=== PATIENT | female | born 1945 | race Caucasian/White ===

== ENCOUNTER 2016-12-16 10:09 | Emergency (ER) | payer MEDICARE, OTHER ==
[2016-12-16] MEDS ORDERED: ONDANSETRON HCL 4 MG/2 ML VIAL ONE (12:09)
[2016-12-16 12:13] LABS: A/G RATIO 1.3; ALBUMIN 3.9 g/dL (3.5-5.0); ALKALINE PHOSPHATASE 99 U/L (38-126); ALT 35 U/L (9-52); AST 53 U/L (14-36); BILIRUBIN, TOTAL 0.9 mg/dL (0.2-1.3); BLOOD UREA NITROGEN 12 mg/dL (7-17); C-REACTIVE PROTEIN 48.6 mg/L (<10.0); CALCIUM 9.4 mg/dL (8.4-10.2); CHLORIDE 103 mmol/L (98-107); EST GLOMERULAR FILTRATION RATE > 60 mL/min; POTASSIUM 3.6 mmol/L (3.5-5.1); SODIUM 137 mmol/L (137-145); TOTAL PROTEIN 6.9 g/dL (6.3-8.2)
[2016-12-16 12:14] LABS: GLUCOSE 202 mg/dL (70-100)
[2016-12-16 12:41] LABS: HEMATOCRIT 36.5 % (36.0-48.0); HEMOGLOBIN 12.6 g/dL (12.0-16.0); MEAN CELL VOLUME 84.1 fL (80.0-100.0); MEAN CORPUS. HGB CONCENTRATION 34.4 g/dL (32.0-36.0); MEAN CORPUSCULAR HEMOGLOBIN 28.9 pg (29.0-35.0); MEAN PLATELET VOLUME 8.7 fL (7.4-10.4); PLATELET COUNT 284 X 10^3uL (130-440); RED BLOOD COUNT 4.34 X 10^6uL (4.20-6.10); RED CELL DISTRIBUTION WIDTH 15.6 % (11.5-14.5); WHITE BLOOD COUNT 11.7 X 10^3uL (3.9-10.7)
[2016-12-16 12:57] LABS: TROPONIN I < 0.012 ng/mL (0.00-0.034)
[2016-12-16 13:01] LABS: BAND% (Manual) 4 % (0.0-1.0); EOSINOPHIL % (Manual) 2 % (0.0-6.0); LYMPHOCYTE % (Manual) 8 % (20.0-40.0); MONOCYTE % (Manual) 8 % (2.0-10.0); NEUTROPHIL % (Manual) 78 % (54.0-75.0)
[2016-12-16 13:02] LABS: PLATELET ESTIMATE ADEQUATE
[2016-12-16 13:24] LABS: ERYTHROCYTE SEDIMENTATION RATE 32 MM/HR (0-20)
--- NOTE | 2016-12-16 14:33 | ER PHYSICIAN DOCUMENTATION ---
Physician Documentation [facility] Name:Germania Mckay Age:71 yrs Sex:Female :1945 Arrival Date:12/16/2016 Time:10:09 BedD-1 Private MD: Rafale iKrk Disposition: 12/17 21:33 Chart complete. tl1 Disposition: 12/16/16 13:39 Discharged to Home/Self Care. Impression: Joint Pain. - Condition is Good. - Discharge Instructions: ARTHRALGIA. - Prescriptions for Tramadol 50 mg Oral - take 2 tablet by ORAL route every 8 hours as needed; 20 tablet. - Medical Reconciliation form form. - Follow up: Private Physician; When: 2 - 3 days; Reason: Recheck today's complaints, Continuance of care. - Problem is new. - Symptoms have improved. - Notes: The cause of the pain and swelling in your foot is not clear. It could be related to your rheumatoid arthritis.. Infection seems unlikely, but you need to return if this gets worse. Make sure to follow up with your Neuropsychologist or family doctor as soon as possible after returning home. OK to take two ultram tablets every 6 hours as needed for your pain HPI: 12/16 10:13 This 71 yrs old Female presents to ER with complaints of Foot Pain -right. tl1 10:13 The patient presents with pain. The complaints affect the right foot, dorsum of right tl1 foot. Context: resulted from an unknown cause, Mechanism of Injury: Unknown the patient can partially bear weight, the patient is able to ambulate, can ambulate using a cane. Onset: The symptom(s)/episode began/occurred gradually, 2 day(s) ago. Modifying factors: The symptoms are alleviated by elevation of extremity, ice packs, the symptoms are aggravated by weight bearing. Severity of symptoms: At their worst the symptoms were mild, in the emergency department the symptoms are unchanged. The patient has not experienced similar symptoms in the past. Historical: - Allergies: PCN; Cymbalta; Talwin; - Home Meds: 1. Metformin Oral 2. Nitrofurantoin Macrocrystal Oral 3. amlodipine oral 4. benazepril oral 5. Trazodone Oral 6. Oxybutynin Chloride Oral 7. tramadol oral 8. Lyrica Oral 9. Omeprazole Oral 10. Sucralfate Oral 11. Carafate Oral 12. tizanidine oral 13. levothyroxine oral 14. Voltaren Oral 15. meloxicam oral - PMHx: DIABETES - NIDDM; HTN; bladders infections; FIBROMYALGIA; CHRONIC PAIN; GERD; IBS; HYPOTHYROIDISM; dry eyes; - PSHx: Appendectomy; Cholecysectomy; Hysterectomy; Tonsillectomy; fibroadenomas; CARPAL TUNNEL REPAIR; fusion of C 5/6, and C 6/7; removal of hardware from neck; bilat knee replacements; - Tetanus: unknown. - Ebola Screening: : Patient negative for fever greater than or equal to 101.5 degrees Fahrenheit, and additional compatible Ebola Virus Disease symptoms. Patient denies exposure to infectious person. Patient denies travel to an Ebola-affected area in the 21 days before illness onset. No symptoms or risks identified at this time. . - Immunization history: Unable to Obtain. - Social history: Smoking status: Patient states was never smoker of tobacco. ROS: 10:30 MS/extremity: Positive for pain, swelling, tenderness, of the dorsum of right foot. tl1 10:30 All other systems are negative. Exam: 10:30 Constitutional: The patient appears in no acute distress, alert, awake, non-toxic, well tl1 developed, well hydrated, well groomed, well nourished, obese, uncomfortable. 10:30 Head/face: Exam is negative for acute changes. 10:30 Eyes: Periorbital structures: appear normal, Conjunctiva: normal. 10:30 Neck: External neck: is normal, ROM/movement: is normal, Lymph nodes: no appreciated lymphadenopathy. 10:30 Chest/axilla: Inspection: normal. 10:30 Cardiovascular: Rate: normal, Rhythm: regular, Heart sounds: normal. 10:30 Respiratory: Respirations: normal, Breath sounds: are normal. 10:30 Abdomen/GI: Inspection: distension, is not seen, Palpation: abdomen is soft and non-tender. 10:30 Musculoskeletal/extremity: Extremities: grossly normal except: noted in the dorsum of right foot: erythema, swelling, tenderness, There is no evidence of abrasion, bite, contusion, deformity, ecchymosis, laceration, puncture, rash, swelling, tenderness. 10:30 Skin: Exam negative for acute changes. Vital Signs: 11:05 Pulse Ox 86% on R/A; lp 11:05 Pulse Ox 92% on 2 lpm NC; lp 12:54 BP 132 / 77; Pulse 93; Resp 18; Pulse Ox 92% on 2 lpm NC; Pain 6/10; rs MDM: 10:13 Patient medically screened. tl1 13:30 Differential diagnosis: fracture, sprain, arthritis, gout, cellulitis. Data reviewed: tl1 vital signs, nurses notes, lab test result(s), radiologic studies, and as a result, I will discharge patient. Test interpretation: by ED physician or midlevel provider: plain radiologic studies, ECG. Counseling: I had a detailed discussion with the patient and/or guardian regarding: the historical points, exam findings, and any diagnostic results supporting the discharge/admit diagnosis, lab results, radiology results, the need for outpatient follow up, to return to the emergency department if symptoms worsen or persist or if there are any questions or concerns that arise at home. Response to treatment: the patient's symptoms have mildly improved after treatment, and as a result, I will discharge patient. ED course: Later in her stay she mentioned left posterolateral pleuritic chest pain that lasted about 5 min an was unassociated with dyspnea, n/v/diaphoresis or palpitations. She had an unremarkable CXR and EKG, with a normal troponin and had no further chest discomfort throughout her ED stay. She was placed in a cast boot and given crutches. 12/16 12:14 Order name: COMPREHENSIVE METABOLIC PANEL; Complete Time: 21:24 EDMO 12/16 13:01 Interpretation: Normal Except: CARBON DIOXIDE 20; GLUCOSE 202; AST 53. [facility] 12/16 12:14 Order name: C-REACTIVE PROTEIN; Complete Time: 21:24 EDMS 12/16 12:59 Interpretation: Abnormal: C-REACTIVE PROTEIN 48.6. [facility] 12/16 12:57 Order name: TROPONIN I; Complete Time: 21:24 EDMS 12/17 21:23 Interpretation: Normal: TROPONIN I < 0.012. [facility] 12/16 12:58 Order name: CBC WITHOUT A DIFFERENTIAL; Complete Time: 21:24 EDMS 12/17 21:23 Interpretation: Normal Except: WHITE BLOOD COUNT 11.7. [facility] 12/16 13:03 Order name: MANUAL DIFFERENTIAL; Complete Time: 21:24 EDMS 12/17 21:23 Interpretation: NEUTROPHIL % (Manual) 78; BAND% (Manual) 4; LYMPHOCYTE % (Manual) 8. [facility] 12/16 13:24 Order name: ERYTHROCYTE SEDIMENTATION RATE; Complete Time: 21:24 EDMO 12/17 21:23 Interpretation: Abnormal: ERYTHROCYTE SEDIMENTATION RATE 32. 1 12/17 12:11 Order name: CHEST; SINGLE VIEW 09964; Complete Time: 21:24 EDMO 12/17 12:12 Order name: FOOT;[address] [place] [address]; Complete Time: 21:24 EDMO 12/17 21:24 Interpretation: NAD. See report. Hardware intact. [facility] 12/16 11:27 Order name: Iv Saline Lock; Complete Time: 12:26 12/16 12:20 Order name: 12-lead EKG; Complete Time: 12:21 12/16 13:00 Interpretation: SEE NOTE. Biphasic T waves in V4,5, Possible LAD. No old EKGs to 1 compare. 12/16 13:06 Order name: ORTHO: Crutches & Training 12/16 13:06 Order name: Walking Boot Dispensed Medications: 12:15 Drug: Zofran 4 mg; Route: IVP; Rate: 2 mg/min; Infused Over: 2 mins; Site: right rs antecubital; 12:17 Drug: Dilaudid 0.5 mg; Route: IVP; Rate: 0.25 mg/min; Infused Over: 2 mins; Site: right rs antecubital; Signatures: Reyna Kim RN RN rs Leigh, Tom, MD MD [facility]
--- NOTE | 2016-12-16 14:33 | ER NURSING DOCUMENTATION ---
Nurse's Notes [facility] Name:Germania Mckay Age:71 yrs Sex:Female :1945 Arrival Date:12/16/2016 Time:10:09 BedD-1 Private MD: Diagnosis:Joint Pain Presentation: 12/16 10:28 Presenting complaint: Patient states: States she started having right foot and ankle rs pain yesterday, and it is worse today. No hx of injury or gout. Has a hx of osteoarthritis. Transition of care: patient was not received from another setting of care. 10:28 Acuity: DARIUSZ 3 rs 10:28 Method Of Arrival: Private Vehicle rs Triage Assessment: 10:45 General: Appears in no apparent distress, comfortable, well developed, well nourished, rs well groomed, Behavior is cooperative, pleasant. Pain: Complains of pain in right foot and ankle Pain does not radiate. Pain currently is 8 out of 10 on a pain scale. Pain began 1 day ago. EENT: No deficits noted. Neuro: No deficits noted. Level of Consciousness is awake, alert, Oriented to person, place, time, event. Cardiovascular: No deficits noted. Capillary refill < 3 seconds Pulses are 3+ in left radial artery. Respiratory: No deficits noted. Respiratory effort is even, unlabored, Respiratory pattern is regular, symmetrical. Derm: No deficits noted. Skin is pink, warm & dry. Musculoskeletal: Circulation, motion, and sensation intact Capillary refill Range of motion limited in right ankle Tenderness present in tender right foot and ankle. Injury Description: none. Historical: - Allergies: PCN; Cymbalta; Talwin; - Home Meds: 1. Metformin Oral 2. Nitrofurantoin Macrocrystal Oral 3. amlodipine oral 4. benazepril oral 5. Trazodone Oral 6. Oxybutynin Chloride Oral 7. tramadol oral 8. Lyrica Oral 9. Omeprazole Oral 10. Sucralfate Oral 11. Carafate Oral 12. tizanidine oral 13. levothyroxine oral 14. Voltaren Oral 15. meloxicam oral - PMHx: DIABETES - NIDDM; HTN; bladders infections; FIBROMYALGIA; CHRONIC PAIN; GERD; IBS; HYPOTHYROIDISM; dry eyes; - PSHx: Appendectomy; Cholecysectomy; Hysterectomy; Tonsillectomy; fibroadenomas; CARPAL TUNNEL REPAIR; fusion of C 5/6, and C 6/7; removal of hardware from neck; bilat knee replacements; - Tetanus: unknown. - Ebola Screening: : Patient negative for fever greater than or equal to 101.5 degrees Fahrenheit, and additional compatible Ebola Virus Disease symptoms. Patient denies exposure to infectious person. Patient denies travel to an Ebola-affected area in the 21 days before illness onset. No symptoms or risks identified at this time. . - Immunization history: Unable to Obtain. - Social history: Smoking status: Patient states was never smoker of tobacco. Screenin:28 Infectious Disease Risk None. Abuse screen: Denies threats or abuse. Nutritional rs screening: No deficits noted. Assessment: 12:00 Reassessment: C/O left sided CP, the area is tender to palp, states it is similar to rs her fibromyalgia pain. MD notified.. Vital Signs: 11:05 Pulse Ox 86% on R/A; lp 11:05 Pulse Ox 92% on 2 lpm NC; lp 12:54 BP 132 / 77; Pulse 93; Resp 18; Pulse Ox 92% on 2 lpm NC; Pain 6/10; rs ED Course: 10:11 Patient arrived in ED. dp 10:13 Rafael Florez MD is Attending Physician. tl1 10:27 Reyna Kim, KIMI is Primary Nurse. rs 10:31 Triage completed. rs 10:40 Patient moved to radiology. nhan 10:45 Patient moved back from radiology. nhan 11:00 Arm band placed on Bed in low position Call Light in Reach Gowned HOB Elevated Side rs rails up x2. Family accompanied patient. 11:15 Door closed. Noise minimized. Verbal reassurance given. rs 11:30 Missed attempts: 20 gauge in left wrist, in left forearm. rs 12:10 Inserted saline lock: 22 gauge in right antecubital area and blood collected. rs 12:20 EKG done per protocol. Performed by ED Staff. Shown to ED physician. Labs ordered per rs protocol. X-ray ordered. 12:28 Pulse Ox - RN Monitoring Only NIBP On - RN Monitoring Only. rs 14:28 Crutch training done. Walking boot applied. rs 14:31 Valuables Remains with patient. rs Administered Medications: 12:15 Drug: Zofran 4 mg; Route: IVP; Rate: 2 mg/min; Infused Over: 2 mins; Site: right rs antecubital; 12:17 Drug: Dilaudid 0.5 mg; Route: IVP; Rate: 0.25 mg/min; Infused Over: 2 mins; Site: right rs antecubital; Outcome: 13:39 Discharge ordered by . tl1 14:29 Discharged to home via wheelchair. 14:29 Condition: improved 14:29 Discharge instructions given to patient, family, Instructed on crutch walking, discharge instructions, follow up and referral plans. medication usage, Demonstrated understanding of instructions, crutch walking, medications, Prescriptions given X 1. 14:32 Patient left the ED. 12/17 13:10 Discharge F/U Call: Unable to reach: left voicemail: lc Signatures: Reyna Kim RN RN rs Jacquelin Soto RN RN Frances St RN RN lp Abbott, Laura lea McBride, Philisha 1 Rafael Florez MD MD tl1 Lia Nevarez
--- NOTE | 2016-12-17 09:33 | RADIOLOGY REPORT ---
A limited single portable view of the chest demonstrates the heart, vessels and lungs to be unremarkable. IMPRESSION: Unremarkable limited single portable view of the chest. MTDD
--- NOTE | 2016-12-17 09:35 | RADIOLOGY REPORT ---
Three views of the right foot demonstrate no fracture or dislocation. Post surgical changes of the first metatarsal phalangeal joint are noted. Hardware appears intact and in appropriate position. Plantar calcaneal spur is seen. The joints appear unremarkable. IMPRESSION: Chronic changes as described. No displaced injury is identified. If clinically indicated, further evaluation and/or follow-up may be of benefit. DAVID
[2016-12-17] MEDS ORDERED: NALOXONE HCL 2 MG/2 ML SYR ONE (13:58)
== END 2016-12-16 14:32 | disposition home or self-care (01) ==
LOC: ER 10:09
DX: M25.571 Pain in right ankle and joints of right foot (principal); M79.671 Pain in right foot; R07.81 Pleurodynia; M06.9 Rheumatoid arthritis, unspecified; I10 Essential (primary) hypertension; E11.9 Type 2 diabetes mellitus without complications; Z79.899 Other long term (current) drug therapy
CPT/HCPCS: 71010; 73630; 80053; 84484; 85007; 85027; 85651; 86140; 93005; 96374; 96375; 99284; 99285; J1170; J2310; J2405

== ENCOUNTER 2016-12-17 13:31 | Emergency (ER) | payer MEDICARE, OTHER ==
[2016-12-17 14:32] LABS: ARTERIAL BLOOD GAS HCO3 25.6 mmol/L (22-26)
[2016-12-17 14:41] LABS: URINE MUCUS NONE SEEN (Up to 25%); URINE RBC NONE SEEN (0-5/hpf)
[2016-12-17 14:51] LABS: BASOPHILS 0.2 % (0.0-2.0); HEMOGLOBIN 11.6 g/dL (12.0-16.0); LYMPHOCYTES 11.3 % (20.0-40.0); LYMPHOCYTES# 1.4 X 10^3uL (0.8-3.8); MEAN CELL VOLUME 84.4 fL (80.0-100.0); MEAN CORPUS. HGB CONCENTRATION 34.1 g/dL (32.0-36.0); MEAN CORPUSCULAR HEMOGLOBIN 28.8 pg (29.0-35.0); MONOCYTES# 0.6 X 10^3uL (0.2-1.0); NEUTROPHILS 83.5 % (54.0-75.0); NEUTROPHILS# 10.6 X 10^3uL (2.6-6.7); PLATELET COUNT 259 X 10^3uL (130-440); RED BLOOD COUNT 4.02 X 10^6uL (4.20-6.10); RED CELL DISTRIBUTION WIDTH 16.1 % (11.5-14.5); WHITE BLOOD COUNT 12.6 X 10^3uL (3.9-10.7)
[2016-12-17 15:01] LABS: A/G RATIO 1.3; ALBUMIN 3.9 g/dL (3.5-5.0); ALKALINE PHOSPHATASE 90 U/L (38-126); ALT 879 U/L (9-52); BILIRUBIN, TOTAL 0.7 mg/dL (0.2-1.3); BLOOD UREA NITROGEN 27 mg/dL (7-17); CALCIUM 9.1 mg/dL (8.4-10.2); CHLORIDE 97 mmol/L (98-107); EST GLOMERULAR FILTRATION RATE 25 mL/min; POTASSIUM 4.1 mmol/L (3.5-5.1); SODIUM 137 mmol/L (137-145)
[2016-12-17 15:04] LABS: URINE APPEARANCE CLEAR; URINE COLOR YELLOW; URINE LEUKOCYTE ESTERASE NEGATIVE (NEGATIVE); URINE NITRITE NEGATIVE (NEGATIVE); URINE SPECIFIC GRAVITY 1.025 (0.001-1.035)
[2016-12-17 15:05] LABS: URINE BACTERIA NONE SEEN (<10/hpf); URINE BILIRUBIN NEGATIVE (NEGATIVE); URINE BLOOD NEGATIVE (NEGATIVE); URINE GLUCOSE NORMAL (NEGATIVE); URINE KETONE 5mg/dL (NEGATIVE); URINE PROTEIN 100mg/dL (2+) (NEG - TRACE); URINE UROBILINOGEN NORMAL (NEG-1mg/dL)
[2016-12-17 15:06] LABS: URINE AMORPHOUS SEDIMENT UP TO 25%/lpf (Up to 25%)
[2016-12-17 15:07] LABS: URINE SQUAMOUS EPITHELIAL CELL 0-5/hpf (<= 15/hpf); URINE WBC 0-4/hpf (0-4/hpf)
[2016-12-17 15:09] LABS: AST 1344 U/L (14-36); GLUCOSE 231 mg/dL (70-100)
[2016-12-17 15:10] LABS: ETHYL ALCOHOL < 10 mg/dL (<10)
--- NOTE | 2016-12-17 15:10 | CT REPORT ---
HISTORY: Altered mental status. COMPARISON: None TECHNIQUE: Axial CT images were obtained through the head and reformatted in coronal planes without the intraven ous administration of contrast. Dose reduction technique was utilized. FINDINGS: There is no acute infarct, hemorrhage, mass, hydrocephalus or midline shift. There are mild hypodens ities throughout the cerebral white matter. There is bilateral cataract surgery. There is no acute calvarial fracture. The visualized portions of the paranasal sinuses and the bilateral mastoid air cells are clear. IMPRESSION: 1. Mild chronic small vessel ischemic disease. 2. No acute intracranial process. Final Electronic Signature: This report was electronically signed by Ramesh Zhang MD on 12/18/19 17 3:08 PM. maribell /
[2016-12-17 15:31] LABS: ACETAMINOPHEN < 10.0 ug/mL (10.0-30.0)
[2016-12-17 15:52] LABS: TROPONIN I 0.256 ng/mL (0.00-0.034)
--- NOTE | 2016-12-17 16:07 | RADIOLOGY REPORT ---
A limited single portable view of the chest is compared with film of the previous date. Examination demonstrates a limited degree of inspiration. There has been development of stringy atelectasis and/or infiltrate at the right lung base. Heart and vessels are stable considering the inspiration. IMPRESSION: Interval development of stringy atelectasis and/or infiltrate at the right lung base. MTDD
--- NOTE | 2016-12-17 16:16 | CT REPORT ---
HISTORY: Altered mental status, elevated creatinine COMPARISON: None. TECHNIQUE: This examination was performed using automated exposure control, adjustment of mA or kV according to patient size, and/or use of iterative reconstruction technique. Axial contiguous images of the abdome n and pelvis were obtained without oral or IV contrast, coronal reformat images also performed. FINDINGS: Mild to moderate right basilar, and mild left basilar atelectasis is noted. No pleural effusions. The visualized portions of the inferior heart are unremarkable. The right and left kidneys are unremarkable. There is no hydronephrosis or hydroureter. There is no c alculus. The bladder is decompressed, with a Sanches catheter. There is no hepatic mass or intrahepatic biliary dilatation identified on limited noncontrast imaging . The gallbladder is absent. The spleen is unremarkable. There is no pancreatic mass or ductal dil atation. The adrenal glands are unremarkable. The bowel is unremarkable given the lack of contrast. No obstruction or evidence of inflammation. Th ere is no free intraperitoneal fluid or gas. There is no mesenteric edema or inflammatory process. Vascular structures of the abdomen and pelvis are unremarkable. No pathologic adenopathy is identifi ed. The uterus appears absent. The adnexal regions are normal. There is minimal posterior subluxatio n of L2 on 3,, with moderate to severe degenerative change at this level. A hemangioma at T6 is noted . IMPRESSION: Unremarkable noncontrast exam. No bowel obstruction. No kidney stone. No free air or free fluid. Moderate right and mild left basilar atelectasis without effusions. Final Electronic Signature: This report was electronically signed by Vik Solares MD on 12/17/2016 4: 13 PM. lexy /
[2016-12-17] MEDS ORDERED: IPRATROPIUM/ALBUTEROL 0.5/3 MG 3 ML AMPUL.NEB INHALATION ONE ×2 (16:38→18:39)
[2016-12-17] MEDS ORDERED: CEFTRIAXONE SODIUM ONE (16:52)
[2016-12-17] MEDS ORDERED: NORMAL SALINE 100 ML IV ONE (16:52)
[2016-12-17] MEDS ORDERED: ONDANSETRON HCL 4 MG/2 ML VIAL ONE (19:13)
--- NOTE | 2016-12-17 19:44 | ER NURSING DOCUMENTATION ---
Nurse's Notes [facility] Name:Germania Mckay Age:71 yrs Sex:Female :1945 Arrival Date:12/17/2016 Time:13:31 BedD-2 Private MD: Diagnosis:Altered Mental Status Presentation: 12/17 13:47 Presenting complaint: EMS states: Family states she was last seen normal before bed rs yesterday evening at 10 pm. She has been very sedate, had only a couple sips of water and did not get out of bed to go to the bathroom (or anything else). They "let her sleep", and then tried to arouse her, without success. Then called 911. She was in this ER yesterday for foot and ankle pain. Was tx with a boot / crutches and had her own Tramadol to take. Transition of care: patient was not received from another setting of care. 13:47 Acuity: DARIUSZ 2 rs 13:47 Method Of Arrival: EMS: 410 rs Triage Assessment: 14:14 General: Appears ill, Behavior is Minimally responsive, withdraws to pain. Eyes are rs open and gaze is caudal. Withdraws to painful stim of pressure on finger nail. . 14:32 Neuro: Level of Consciousness is lethargic, listless, does not obey commands. After rs being given a 1/2 amp of narcan she opened her eyes wide and said "yes" to every question. Her answer did not vary. Her speech was clear. . Neuro: Reports unable to answer. . Seizure activity No seizure activity. Cardiovascular: Capillary refill < 3 seconds Pulses are 2+ in left radial artery Reports nothing. Parent/caregiver reports patient has had vomited once before bed last noc. Did go out to dinner with family for their 50th anniversary celebration. She kept dozing off during the meal. Then she woke up after they got home for about one hour. Respiratory: Airway is patent Trachea midline Respiratory effort is even, unlabored, Respiratory pattern is regular, symmetrical, Breath sounds are clear bilaterally. Initial pulse ox on RA was 73%. GI: No deficits noted. Abdomen is non- distended obese, Bowel sounds present X 4 quads. Historical: - Allergies: PCN; Cymbalta; Talwin; - Home Meds: 1. Metformin Oral 2. Nitrofurantoin Macrocrystal Oral 3. amlodipine oral 4. benazepril oral 5. Trazodone Oral 6. Oxybutynin Chloride Oral 7. tramadol oral 8. tizanidine oral 9. Lyrica Oral 10. Omeprazole Oral 11. Nitrofurantoin Macrocrystal Oral 12. levothyroxine oral 13. amlodipine oral 14. meloxicam oral 15. Methotrexate (Anti-Rheumatic) 2.5 mg oral tab 16. Trazodone Oral 17. Voltaren Oral 18. Carafate Oral 19. Sucralfate Oral 20. pregabalin 200 mg oral cap 1 cap 3 times per day - PMHx: DIABETES - NIDDM; FIBROMYALGIA; CHRONIC PAIN; GERD; HYPOTHYROIDISM; dry eyes; Joint Pain (December 16, 2016); - PSHx: APPENDECTOMY; CHOLECYSECTOMY; HYSTERECTOMY; TONSILLECTOMY; fibroadenomas; CARPAL TUNNEL REPAIR; fusion of C 5/6, and C 6/7; removal of hardware from neck; bilat knee replacements; - Tetanus: unknown. - Ebola Screening: : Patient negative for fever greater than or equal to 101.5 degrees Fahrenheit, and additional compatible Ebola Virus Disease symptoms. Patient denies exposure to infectious person. Patient denies travel to an Ebola-affected area in the 21 days before illness onset. No symptoms or risks identified at this time. . - Immunization history: Unable to Obtain. - Social history: Smoking status: Patient states was never smoker of tobacco. Screenin:00 Infectious Disease Risk None. Abuse screen: Denies threats or abuse. Nutritional rs screening: No deficits noted. Assessment: 16:47 Reassessment: Patient states symptoms have improved. She is speaking in short rs sentences, c/o pain in her back. . 18:21 Reassessment: Patient states symptoms have improved. Patient appears in no apparent rs distress at this time. Cardiovascular: Rhythm is sinus rhythm no ectopy. 18:27 Respiratory: Breath sounds with wheezes bilaterally. rs Vital Signs: 13:31 Pulse Ox 74% on R/A; rs 13:36 Pulse 99 MON; Resp 21; Pulse Ox 94% ; rs 13:40 BP 128 / 80 (auto/); rs 13:41 Pulse 102 MON; Resp 21; rs 13:46 Pulse 105 MON; Resp 18; Pulse Ox 90% ; rs 13:50 BP 123 / 98 (auto/); rs 13:51 Pulse 102 MON; Resp 25; Pulse Ox 89% ; rs 14:20 BP 160 / 86 (auto/); rs 14:21 Pulse 91 MON; Resp 18; Pulse Ox 96% ; rs 14:26 Pulse 92 MON; Resp 20; Pulse Ox 93% ; rs 14:30 BP 154 / 86 (auto/); rs 14:31 Pulse 89 MON; Resp 21; Pulse Ox 93% ; rs 14:36 Pulse 93 MON; Resp 27; Pulse Ox 93% ; rs 14:40 BP 163 / 91 (auto/); rs 14:41 Pulse 95 MON; Resp 22; Pulse Ox 92% ; rs 14:56 Pulse Ox 96% ; rs 15:00 BP 167 / 86 (auto/); rs 15:01 Pulse 92 MON; Resp 20; Pulse Ox 92% ; rs 15:06 Pulse 94 MON; Resp 22; Pulse Ox 89% ; rs 15:11 Pulse 92 MON; Resp 24; Pulse Ox 92% ; rs 15:11 BP 150 / 86 (auto/); rs 15:16 Pulse 92 MON; Resp 20; Pulse Ox 93% ; rs 15:20 BP 161 / 90 (auto/); rs 15:21 Pulse 90 MON; Resp 19; Pulse Ox 92% ; rs 15:26 Pulse 88 MON; Resp 17; Pulse Ox 94% ; rs 15:30 BP 160 / 79 (auto/); rs 15:31 Pulse 93 MON; Resp 23; Pulse Ox 93% ; rs 15:36 Pulse 92 MON; Resp 21; Pulse Ox 93% ; rs 15:40 BP 143 / 74 (auto/); rs 15:41 Pulse 94 MON; Resp 21; rs 16:13 BP 121 / 71 (auto/); rs 16:16 Pulse Ox 83% ; rs 16:21 BP 163 / 84 (auto/); rs 16:21 Pulse 93 MON; Resp 22; Pulse Ox 88% ; rs 16:26 Pulse 91 MON; Resp 19; Pulse Ox 94% ; rs 16:30 BP 146 / 93 (auto/); rs 16:31 Pulse 88 MON; Resp 18; Pulse Ox 94% ; rs 16:36 Pulse 87 MON; Resp 18; Pulse Ox 97% ; rs 16:40 BP 168 / 101 (auto/); rs 16:41 Pulse 94 MON; Resp 20; Pulse Ox 96% ; rs 16:46 Pulse 92 MON; Resp 19; Pulse Ox 93% ; rs 16:50 BP 167 / 99 (auto/); rs 16:51 Pulse 94 MON; Resp 22; Pulse Ox 96% ; rs 16:56 Pulse 94 MON; Resp 19; Pulse Ox 96% ; rs 17:01 BP 191 / 72 (auto/); rs 17:01 Pulse 94 MON; Resp 18; Pulse Ox 97% ; rs 17:06 Pulse 96 MON; Resp 18; rs 17:11 BP 172 / 98 (auto/); rs 17:11 Pulse 92 MON; Resp 19; Pulse Ox 91% ; rs 17:16 Pulse 94 MON; Resp 20; Pulse Ox 91% ; rs 17:20 BP 176 / 96 (auto/); rs 17:21 Pulse 96 MON; Resp 20; Pulse Ox 92% ; rs 17:26 Pulse 96 MON; Resp 18; Pulse Ox 90% ; rs 17:30 BP 196 / 108 (auto/); rs 17:31 Pulse 93 MON; Resp 20; Pulse Ox 93% ; rs 17:36 Pulse 91 MON; Resp 18; Pulse Ox 94% ; rs 17:40 BP 174 / 91 (auto/); rs 17:41 Pulse 91 MON; Resp 18; Pulse Ox 93% ; rs 17:46 Pulse 88 MON; Resp 19; Pulse Ox 93% ; rs 17:51 BP 142 / 88 (auto/); rs 17:51 Pulse 90 MON; Resp 17; Pulse Ox 92% ; rs 17:56 Pulse 90 MON; Resp 18; Pulse Ox 96% ; rs 18:00 BP 157 / 90 (auto/); rs 18:01 Pulse 91 MON; Resp 18; Pulse Ox 94% ; rs 18:06 Pulse 92 MON; Resp 25; Pulse Ox 95% ; rs 18:10 BP 175 / 91 (auto/); rs 18:11 Pulse 91 MON; Resp 18; Pulse Ox 93% ; rs Doyle Coma Score: 13:40 Eye Response: to pain(2). Verbal Response: incomprehensible(2). Motor Response: rs withdraws from pain(4). Total: 8. 17:41 Eye Response: spontaneous(4). Verbal Response: confused(4). Motor Response: obeys rs commands(6). Total: 14. ED Course: 13:32 Patient arrived in ED. dp 13:34 Rafael Florez MD is Attending Physician. tl1 13:40 Maintain field IV. Dressing intact. Good blood return noted. Site clean & dry. Gauge & rs site: 20 gauge in right AC.. Oxygen O2 via resp therapy here to assist. O2 at 6 L/min per nc. walking boot that was placed yesterday was removed and the condition of the foot was checked. Her foot looks improved, it is less red and swollen. It is warm and has good pulses. 13:45 Valuables with . Patient has correct armband on for positive identification. rs Placed in gown. Bed in low position. Call light in reach. Side rails up X2. Adult w/ patient. monitor and storage bin tender on. Pulse ox on. NIBP on. Door closed. Noise minimized. Visitors limited. Lights dimmed. Verbal reassurance given. Warm blanket given. Diet: Patient is NPO. Family accompanied patient Family at bedside. 13:47 Reyna Kim, RN is Primary Nurse. rs 13:55 Sanches cath inserted returned priti urine. rs 13:58 Triage completed. rs 14:16 Patient moved back from CT. tt 14:32 ABG's drawn from right radial artery, Cristo's test done and positive, direct pressure kr held for 5 minutes, no bleeding noted, pressure bandage applied, specimen sent. 14:41 Patient moved to radiology. pm1 14:55 Patient moved back from radiology. dnn 15:12 ED physician of Notified Notified Dr. Florez of critical values of Glucose, AST, ALT. No lpr new orders received at this time. 15:[address] pm1 16:00 EKG done. (by ED staff). Reviewed by Rafael Florez MD. rs 16:02 Patient moved back from CT. dnn 17:28 One on one care Since arrival in ER. rs 18:03 mouth care given intermittently. rs 18:06 Pt visited by Assorted family members have been with her one or two at a time. She is rs talking to them, much clearer now. Still seems drowsy. 18:11 Transfer to [facility]. Family members given copies of map to get to rs the hosp, and room number. 18:14 Oxygen Oxygen administration via nasal cannula @ 6L/min. rs 22:09 EKG attached mk2 Administered Medications: Completed: 2 grams of (cefTRIAXone 1 grams, NS 0.9% 100 ml) IVPB once over 30 mins Completed: NS 0.9% 1000 ml 1000 ml IV at bolus in right antecubital once over 2 hrs via [place] [facility] 13:30 Drug: NS 0.9% 1000 ml; Volume: 1000 ml; Route: IV; Rate: bolus; Infused Over: 2 hrs; rs Site: right antecubital; Delivery: [place] [facility]; 15:45 Follow up: Response: No adverse reaction rs 14:00 Drug: Narcan 2 mg; Route: IVP; Rate: 1 mg/min; Infused Over: 2 mins; Site: right rs antecubital; 17:21 Follow up: Response: No adverse reaction rs 15:45 Drug: NS 0.9% 1000 ml; Volume: 1000 ml; Route: IV; Rate: bolus; Site: right rs antecubital; Delivery: [place] [facility]; 16:10 Drug: Albuterol - Ipratropium (2.5 mg - 0.5 mg) 3 ml; Route: Nebulizer; Infused Over: 8 rs mins; 17:57 Follow up: Response: No adverse reaction; Marked relief of symptoms rs 16:45 Dru grams of (cefTRIAXone 1 grams, NS 0.9% 100 ml); Volume: 100 ml; Route: IVPB; rs Rate: 100 ml/hr; Infused Over: 30 mins; Site: right antecubital; Delivery: [place] [facility]; 17:40 Follow up: IV Status: Completed infusion; IV Intake: 100ml rs 18:26 Drug: DuoNeb (Albuterol 2.5 mg, Atrovent 0.5 mg); 3 ml; Route: Nebulizer; rs Intake: 17:40 IV: 100ml; Total: 100ml. rs 17:54 PO: 0ml; Total: 100ml. rs 18:01 IV: 1200ml; Total: 1300ml. rs Output: 17:54 Urine: 600ml; Total: 600ml. rs Outcome: 17:46 ER care complete, transfer ordered by . tl1 19:43 Patient left the ED. lpr 19:43 [facility]ance Time: December 17, 2016 at 18:00 Patient's face sheet was faxed to accepting facility. Face Sheet included patient's name, address, age, gender, contact information and insurance information. Patient will be transported by: [facility] [place]. Report called to: [facility] per MD. Called again by me via the Doc Line, and told that they were all set, that they got a complete report per MD. 19:43 Condition: improved 19:43 Instructed on need for transfer Signatures: Reyna Kim RN RN rs Mita Padilla tt Dinah Lei RN RN lpr Bethany Vicente RN RN mk2 Kurt Judge pm1 Vik Hester Tom, MD MD tl1 Mimi Bocanegra Denise dp
--- NOTE | 2016-12-17 19:44 | ER PHYSICIAN DOCUMENTATION ---
Physician Documentation [facility] Name:Germania Mckay Age:71 yrs Sex:Female :1945 Arrival Date:12/17/2016 Time:13:31 BedD-2 Private MD: Rafael Kirk Disposition: 12/17 17:00 Critical Care: not applicable. tl1 Disposition: 12/17/16 17:46 Transfer ordered to [facility]. Diagnosis is Altered Mental Status. - Reason for transfer: Higher level of care. - Accepting physician is Devora Sotelo. - Condition is Serious. - Problem is new. - Symptoms are unchanged. COBRA Form completed? Yes Transfer - Mode of Transportation Ambulance HPI: 13:35 This 71 yrs old Female presents to ER with complaints of Syncope. tl1 19:42 I saw her yesterday for atraumatic right dorsal foot pain, redness and swelling. X rays tl1 were negative. She had modestly elevated CRP and ESR. Infection seemed unlikely. She also complained of a very vague left posterolateral pleuritic chest pain. CXR, ECG and troponin were all negative. She is brought in now by EMS for mental status changes. She was apparently drowsy last night after taking some ultram at home. She slept all night. Family tried to awaken her at about 10 AM, but she was listless, seemed confused,and was difficult to arouse. Her speech was slurred and very difficult to understand. Medics were summoned and they brought her here. FSBS was >200. No response to Narcan. She was unable to provide information about her symptoms.. Historical: - Allergies: PCN; Cymbalta; Talwin; - Home Meds: 1. Metformin Oral 2. Nitrofurantoin Macrocrystal Oral 3. amlodipine oral 4. benazepril oral 5. Trazodone Oral 6. Oxybutynin Chloride Oral 7. tramadol oral 8. tizanidine oral 9. Lyrica Oral 10. Omeprazole Oral 11. Nitrofurantoin Macrocrystal Oral 12. levothyroxine oral 13. amlodipine oral 14. meloxicam oral 15. Methotrexate (Anti-Rheumatic) 2.5 mg oral tab 16. Trazodone Oral 17. Voltaren Oral 18. Carafate Oral 19. Sucralfate Oral 20. pregabalin 200 mg oral cap 1 cap 3 times per day - PMHx: DIABETES - NIDDM; FIBROMYALGIA; CHRONIC PAIN; GERD; HYPOTHYROIDISM; dry eyes; Joint Pain (December 16, 2016); - PSHx: APPENDECTOMY; CHOLECYSECTOMY; HYSTERECTOMY; TONSILLECTOMY; fibroadenomas; CARPAL TUNNEL REPAIR; fusion of C 5/6, and C 6/7; removal of hardware from neck; bilat knee replacements; - Tetanus: unknown. - Ebola Screening: : Patient negative for fever greater than or equal to 101.5 degrees Fahrenheit, and additional compatible Ebola Virus Disease symptoms. Patient denies exposure to infectious person. Patient denies travel to an Ebola-affected area in the 21 days before illness onset. No symptoms or risks identified at this time. . - Immunization history: Unable to Obtain. - Social history: Smoking status: Patient states was never smoker of tobacco. ROS: 14:00 Constitutional: Positive for fatigue, malaise. tl1 14:00 Neuro: Negative for seizure activity. 14:00 Unable to obtain ROS due to obtunded state, patient's speech is incomprehensible. Exam: 14:00 Constitutional: The patient appears listless, obese, obviously ill. tl1 14:00 Head/face: Exam is negative for acute changes. 14:00 Eyes: Pupils: equal, round, and reactive to light and accomodation, right pupil is approximately 3 mm(s), left pupil is approximately 3 mm(s), Conjunctiva: normal, Lids and lashes: appear normal. 14:00 ENT: Mouth: Oral mucosa: pink and intact, dry. 14:00 Neck: External neck: is normal, C-spine: vertebral tenderness, is not appreciated, Thyroid: appears normal, Lymph nodes: no appreciated lymphadenopathy. 14:00 Chest/axilla: Palpation: no acute changes. 14:00 Cardiovascular: Rate: normal, Rhythm: regular, Heart sounds: normal. 14:00 Respiratory: Respirations: normal, Breath sounds: rales, are not appreciated, rhonchi, are not appreciated, wheezing, is not appreciated, decreased breath sounds. 14:00 Abdomen/GI: Inspection: abdomen appears normal, distension, is not seen, Palpation: soft, mild abdominal tenderness, in the epigastric area. 14:00 Back: CVA tenderness, is absent. 14:00 Musculoskeletal/extremity: Exam is negative for acute changes. 14:00 Skin: Exam negative for acute changes. 14:00 Neuro: Orientation: Not oriented to person, place, time, situation, Mentation: able to follow commands, confused, Memory: unable to test, Cranial nerves: grossly normal, Motor: moves all fours, Gait: not tested. Vital Signs: 13:31 Pulse Ox 74% on R/A; rs 13:36 Pulse 99 MON; Resp 21; Pulse Ox 94% ; rs 13:40 BP 128 / 80 (auto/); rs 13:41 Pulse 102 MON; Resp 21; rs 13:46 Pulse 105 MON; Resp 18; Pulse Ox 90% ; rs 13:50 BP 123 / 98 (auto/); rs 13:51 Pulse 102 MON; Resp 25; Pulse Ox 89% ; rs 14:20 BP 160 / 86 (auto/); rs 14:21 Pulse 91 MON; Resp 18; Pulse Ox 96% ; rs 14:26 Pulse 92 MON; Resp 20; Pulse Ox 93% ; rs 14:30 BP 154 / 86 (auto/); rs 14:31 Pulse 89 MON; Resp 21; Pulse Ox 93% ; rs 14:36 Pulse 93 MON; Resp 27; Pulse Ox 93% ; rs 14:40 BP 163 / 91 (auto/); rs 14:41 Pulse 95 MON; Resp 22; Pulse Ox 92% ; rs 14:56 Pulse Ox 96% ; rs 15:00 BP 167 / 86 (auto/); rs 15:01 Pulse 92 MON; Resp 20; Pulse Ox 92% ; rs 15:06 Pulse 94 MON; Resp 22; Pulse Ox 89% ; rs 15:11 Pulse 92 MON; Resp 24; Pulse Ox 92% ; rs 15:11 BP 150 / 86 (auto/); rs 15:16 Pulse 92 MON; Resp 20; Pulse Ox 93% ; rs 15:20 BP 161 / 90 (auto/); rs 15:21 Pulse 90 MON; Resp 19; Pulse Ox 92% ; rs 15:26 Pulse 88 MON; Resp 17; Pulse Ox 94% ; rs 15:30 BP 160 / 79 (auto/); rs 15:31 Pulse 93 MON; Resp 23; Pulse Ox 93% ; rs 15:36 Pulse 92 MON; Resp 21; Pulse Ox 93% ; rs 15:40 BP 143 / 74 (auto/); rs 15:41 Pulse 94 MON; Resp 21; rs 16:13 BP 121 / 71 (auto/); rs 16:16 Pulse Ox 83% ; rs 16:21 BP 163 / 84 (auto/); rs 16:21 Pulse 93 MON; Resp 22; Pulse Ox 88% ; rs 16:26 Pulse 91 MON; Resp 19; Pulse Ox 94% ; rs 16:30 BP 146 / 93 (auto/); rs 16:31 Pulse 88 MON; Resp 18; Pulse Ox 94% ; rs 16:36 Pulse 87 MON; Resp 18; Pulse Ox 97% ; rs 16:40 BP 168 / 101 (auto/); rs 16:41 Pulse 94 MON; Resp 20; Pulse Ox 96% ; rs 16:46 Pulse 92 MON; Resp 19; Pulse Ox 93% ; rs 16:50 BP 167 / 99 (auto/); rs 16:51 Pulse 94 MON; Resp 22; Pulse Ox 96% ; rs 16:56 Pulse 94 MON; Resp 19; Pulse Ox 96% ; rs 17:01 BP 191 / 72 (auto/); rs 17:01 Pulse 94 MON; Resp 18; Pulse Ox 97% ; rs 17:06 Pulse 96 MON; Resp 18; rs 17:11 BP 172 / 98 (auto/); rs 17:11 Pulse 92 MON; Resp 19; Pulse Ox 91% ; rs 17:16 Pulse 94 MON; Resp 20; Pulse Ox 91% ; rs 17:20 BP 176 / 96 (auto/); rs 17:21 Pulse 96 MON; Resp 20; Pulse Ox 92% ; rs 17:26 Pulse 96 MON; Resp 18; Pulse Ox 90% ; rs 17:30 BP 196 / 108 (auto/); rs 17:31 Pulse 93 MON; Resp 20; Pulse Ox 93% ; rs 17:36 Pulse 91 MON; Resp 18; Pulse Ox 94% ; rs 17:40 BP 174 / 91 (auto/); rs 17:41 Pulse 91 MON; Resp 18; Pulse Ox 93% ; rs 17:46 Pulse 88 MON; Resp 19; Pulse Ox 93% ; rs 17:51 BP 142 / 88 (auto/); rs 17:51 Pulse 90 MON; Resp 17; Pulse Ox 92% ; rs 17:56 Pulse 90 MON; Resp 18; Pulse Ox 96% ; rs 18:00 BP 157 / 90 (auto/); rs 18:01 Pulse 91 MON; Resp 18; Pulse Ox 94% ; rs 18:06 Pulse 92 MON; Resp 25; Pulse Ox 95% ; rs 18:10 BP 175 / 91 (auto/); rs 18:11 Pulse 91 MON; Resp 18; Pulse Ox 93% ; rs [place] Coma Score: 13:40 Eye Response: to pain(2). Verbal Response: incomprehensible(2). Motor Response: rs withdraws from pain(4). Total: 8. 17:41 Eye Response: spontaneous(4). Verbal Response: confused(4). Motor Response: obeys rs commands(6). Total: 14. MDM: 12/16 16:05 ECG:. tl1 12/17 13:34 Patient medically screened. tl1 17:00 Differential Diagnosis: CVA, electrolyte abnormality, alcohol intoxication, tl1 hypoglycemia, intracranial bleed, meningitis, seizure, sepsis, metabolic encephalopathy. Data reviewed: vital signs, nurses notes, old medical records, lab test result(s), EKG, radiologic studies, CT scan, plain films, and as a result, I will *Transfer Patient administer antibiotics. Test interpretation: by ED physician or midlevel provider: plain radiologic studies, ECG. Counseling: I had a detailed discussion with the patient and/or guardian regarding: the historical points, exam findings, and any diagnostic results supporting the discharge/admit diagnosis, lab results, radiology results, the need to transfer to another facility. Response to treatment: the patient's symptoms have mildly improved after treatment, and as a result, I will admit patient. ED course: She was stable but remained confused. The cause of this unusual constellation of signs, symptoms and lab abnormalities does not make any particular sense to me. She is clearly ill, but the unifying principle here is not at all apparent.. 22:09 EKG attached mk2 12/17 14:35 Order name: ARTERIAL BLOOD GAS; Complete Time: 14:50 EDMS 12/17 14:50 Interpretation: ARTERIAL BLOOD GAS, pH ONLY 7.37; ARTERIAL BLOOD GAS PCO2 44; ARTERIAL tl1 BLOOD GAS PO2 52; ARTERIAL BLOOD GAS HCO3 25.6; ARTERIAL BLD GAS O2 SATURATION 85. 12/17 14:59 Order name: CBC AUTO DIF, MDIF/RMOR IF IND; Complete Time: 20:04 EDMS 12/17 15:19 Interpretation: WHITE BLOOD COUNT 12.6; HEMOGLOBIN 11.6; HEMATOCRIT 34.0; PLATELET tl1 COUNT 259; NEUTROPHILS 83.5. 12/17 15:00 Order name: UA W/ MICRO -CULTURE IF IND; Complete Time: 15:21 EDMS 12/17 15:19 Interpretation: Normal Except: URINE PROTEIN 100mg/dL (2+); URINE KETONE 5mg/dL. tl1 12/17 15:00 Order name: URINE DRUG SCREEN, QUAL; Complete Time: 15:21 EDMS 12/17 15:20 Interpretation: Normal. tl1 12/17 15:10 Order name: COMPREHENSIVE METABOLIC PANEL; Complete Time: 20:04 EDMS 12/17 15:20 Interpretation: SODIUM 137; POTASSIUM 4.1; CHLORIDE 97; GLUCOSE 231; BLOOD UREA tl1 NITROGEN 27; CREATININE 2.1; ALT 879; AST 1344. 12/17 15:10 Order name: ETHYL ALCOHOL; Complete Time: 20:04 EDMS 12/17 15:20 Interpretation: Normal: ETHYL ALCOHOL < 10. tl1 12/17 15:31 Order name: ACETAMINOPHEN; Complete Time: 20:04 EDMS 12/17 20:02 Interpretation: Normal: ACETAMINOPHEN < 10.0. tl1 12/17 15:53 Order name: TROPONIN I; Complete Time: 20:04 EDMS 12/17 20:02 Interpretation: Abnormal: TROPONIN I 0.256. tl1 12/17 15:12 Order name: CAT SCAN; HEAD W/O CON [id number]; Complete Time: 15:21 EDMS 12/17 15:20 Interpretation: NAD. SEE NOTE. tl1 12/17 16:18 Order name: CAT SCAN; ABD/[place] [id number]; Complete Time: 20:04 EDMS 12/17 20:04 Interpretation: see radiologist report. NAD. tl1 12/17 16:33 Order name: CHEST; SINGLE VIEW [id number]; Complete Time: 20:04 EDMS 12/17 15:27 Order name: EKG - 12 Lead; Complete Time: 16:32 tl1 EC/03 16:05 Rate is 89 beats/min. Rhythm is regular, Normal Sinus Rhythm. QRS [place] is Normal. [place] tl1 interval is normal at 166 msec. QRS interval is normal at 95 msec. QT interval is normal at 436 msec. No Q waves. T waves are Normal. No ST changes noted. Clinical impression: Normal ECG. Interpreted by me. Dispensed Medications: Completed: 2 grams of (cefTRIAXone 1 grams, NS 0.9% 100 ml) IVPB once over 30 mins Completed: NS 0.9% 1000 ml 1000 ml IV at bolus in right antecubital once over 2 hrs via [place] [facility] 12/17 13:30 Drug: NS 0.9% 1000 ml; Volume: 1000 ml; Route: IV; Rate: bolus; Infused Over: 2 hrs; rs Site: right antecubital; Delivery: [place] [facility]; 15:45 Follow up: Response: No adverse reaction rs 14:00 Drug: Narcan 2 mg; Route: IVP; Rate: 1 mg/min; Infused Over: 2 mins; Site: right rs antecubital; 17:21 Follow up: Response: No adverse reaction rs 15:45 Drug: NS 0.9% 1000 ml; Volume: 1000 ml; Route: IV; Rate: bolus; Site: right rs antecubital; Delivery: [place] [facility]; 16:10 Drug: Albuterol - Ipratropium (2.5 mg - 0.5 mg) 3 ml; Route: Nebulizer; Infused Over: 8 rs mins; 17:57 Follow up: Response: No adverse reaction; Marked relief of symptoms rs 16:45 Dru grams of (cefTRIAXone 1 grams, NS 0.9% 100 ml); Volume: 100 ml; Route: IVPB; rs Rate: 100 ml/hr; Infused Over: 30 mins; Site: right antecubital; Delivery: [place] [facility]; 17:40 Follow up: IV Status: Completed infusion; IV Intake: 100ml rs 18:26 Drug: DuoNeb (Albuterol 2.5 mg, Atrovent 0.5 mg); 3 ml; Route: Nebulizer; rs Signatures: Reyna Kim RN RN rs Roberts, Leslie, RN RN lpr Kruger, Meg, RN RN mk2 Rafael Florez MD MD tl1
== END 2016-12-17 19:43 | disposition short-term general hospital (02) ==
LOC: ER 13:31
DX: R41.82 Altered mental status, unspecified (principal); R55 Syncope and collapse; R53.83 Other fatigue; R53.81 Other malaise; E86.0 Dehydration; R07.81 Pleurodynia; R40.2432 Glasgow coma scale score 3-8, at arrival to emergency department; R74.8 Abnormal levels of other serum enzymes; R91.8 Other nonspecific abnormal finding of lung field; E11.9 Type 2 diabetes mellitus without complications; Z79.899 Other long term (current) drug therapy; Z99.89 Dependence on other enabling machines and devices; Z99.81 Dependence on supplemental oxygen; Z74.3 Need for continuous supervision
CPT/HCPCS: 51702; 70450; 71010; 74176; 80053; 80305; 80320; 80329; 81001; 82803; 84484; 85025; 93005; 94640; 96365; 96375; 99285; 99291; 99292; A0425; A0427; J2405; J7620